=== PATIENT | female | born 1960 | race Caucasian/White ===

== ENCOUNTER 2020-06-28 08:09 | Emergency (ER) | payer BC ==
[~2020-06-28] VITALS: Ht 162.6 cm; Wt 81.8 kg
[2020-06-28] MEDS ORDERED: colchicine 0.6mg tablet PO ONE ×2 (08:35→12:30)
--- NOTE | 2020-06-28 09:12 | NUR ---
MRI FORM FILLED OUT AND SIGNED BY PATIENT. I CALLED THE BOOKKEEPING MACHINE MECHANIC BECAUSE THE PATIENT HAS ORTOHPEDIC RODS AND PINS IN HER RIGHT FOOT. WAS OKAYED BY BOOKKEEPING MACHINE MECHANIC. IT IS MARKED ON THER MRI SCREENING FORM ALSO.
--- NOTE | 2020-06-28 11:55 | NUR ---
PT. STILL IN MRI
[2020-06-28] MEDS ORDERED: dexamethasone 4mg tablet PO ONE (13:05)
[2020-06-28] MEDS ORDERED: CEPH250T PO (13:14)
[2020-06-28] MEDS ORDERED: COLC0.6T69 PO (13:14)
[2020-06-28] MEDS ORDERED: NAPR-56 PO (13:14)
[2020-06-28] MEDS ORDERED: cephalexin 250mg capsule PO ONE (13:15)
[2020-06-28 13:55] VITALS: BP 142/78
== END 2020-06-28 13:57 | disposition home or self-care (01) ==
LOC: ER 08:10
DX: M10.9 Gout, unspecified (principal); L03.116 Cellulitis of left lower limb; M79.671 Pain in right foot; I10 Essential (primary) hypertension; E03.9 Hypothyroidism, unspecified; Z98.890 Other specified postprocedural states; Z79.2 Long term (current) use of antibiotics; Z79.899 Other long term (current) drug therapy
CPT/HCPCS: 73718; 99285